=== PATIENT | male | born 1970 | race Caucasian/White ===

== ENCOUNTER 2017-02-15 13:50 | Inpatient (IN) | payer OTHER ==
[2017-02-15 19:44] VITALS: BMI 32.4
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
[2017-02-15] MEDS ORDERED: MENTHOL/PHENOL 1 EACH UD MM PRN (19:52)
[2017-02-15] MEDS ORDERED: MAGNESIUM CITRATE 300 ML BOTTLE PO PRN (19:52)
[2017-02-15] MEDS ORDERED: ACETAMINOPHEN 325 MG TABLET (FP) PO PRN (19:52)
[2017-02-15] MEDS ORDERED: MAGNESIUM HYDROX 2400MG/30ML ORAL SUSPENSION 30 ML CUP PO PRN (19:52)
[2017-02-15] MEDS ORDERED: MAG HYDROX/AL HYDROX/SIMETH 30 ML UNIT-DOSE CUP PO PRN (19:52)
[2017-02-15] MEDS ORDERED: NICOTINE POLACRILEX 4 MG GUM BUC PRN (19:52)
[2017-02-15] MEDS ORDERED: LOPERAMIDE HCL 2 MG CAPSULE PO PRN (19:52)
[2017-02-15] MEDS ORDERED: P-EPHED 60MG/TRIPROLIDI 2.5MG TABLET PO PRN (19:52)
[2017-02-15] MEDS ORDERED: guaiFENesin/D-METHORPHAN HB 10 ML UNIT-DOSE CUPS PO PRN (19:52)
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
[2017-02-16] MEDS ORDERED: INSULIN (NOVOLOG) ASPART 100 UNITS/ML 10ML VIAL ONE ×2 (07:26→12:01)
[2017-02-16] MEDS: INSULIN SLIDING SCALE (NOVOLOG) 1 VIAL SQ SCH ×5 (07:31→22:10)
[2017-02-16 10:07] LABS: MCH 28.1 pg (25.7-33.7); MCHC 33.1 g/dl (32.0-35.9); MEAN CELL VOLUME 84.9 fl (80-96); MEAN PLT VOLUME 9.4 fl (7.5-11.1); PLATELET COUNT 245 K/MM3 (134-434); WHITE BLOOD COUNT 10.9 K/mm3 (4.0-10.0)
[2017-02-16 10:42] LABS: ALBUMIN 3.6 g/dl (3.4-5.0); ALK PHOS 87 U/L (45-117); ANION GAP 8 (8-16); BILIRUBIN,TOTAL 0.6 mg/dL (0.2-1.0); CO2 28 mmol/L (21-32); CREATININE 0.8 mg/dL (0.7-1.3); GLUCOSE,RANDOM 245 mg/dL (74-106); SGPT/ALT 22 U/L (12-78); TOT PROT 7.2 g/dl (6.4-8.2)
[2017-02-16 10:45] LABS: SGOT/AST 3 U/L (15-37)
[2017-02-16] MEDS: DIVALPROEX SODIUM 500 MG TABLET E.C. PO SCH ×2 (11:57→22:09)
[2017-02-16] MEDS: RANITIDINE HCL 150 MG TABLET (FP) PO SCH ×3 (11:57→22:09)
[2017-02-16] MEDS: RAMIPRIL 10 MG PO SCH (11:57)
[2017-02-16] MEDS: PRENATAL VITAMINS W/ FOLIC ACID TABLET (FP) PO SCH (11:57)
[2017-02-16] MEDS: HALOPERIDOL 5 MG TABLET (FP) PO SCH (11:57)
[2017-02-16] MEDS: NICOTINE 21 MG/24 HOURS TOPICAL PATCH TD SCH (11:58)
[2017-02-16] MEDS ORDERED: SODIUM CHLORIDE NASAL SPRAY 44 ML BOTTLE NS PRN (12:19)
[2017-02-16 12:42] LABS: SICKLE CELL SCREEN NEGATIVE (NEGATIVE)
--- NOTE | 2017-02-16 13:56 | EKG ---
Test Reason : Blood Pressure : / mmHG Vent. Rate : 070 BPM Atrial Rate : 070 BPM P-R Int : 150 ms QRS Dur : 082 ms QT Int : 372 ms P-R-T Axes : 062 074 054 degrees QTc Int : 401 ms NORMAL SINUS RHYTHM NORMAL ECG NO PREVIOUS ECGS AVAILABLE Confirmed by LEVI HIGUERA MD ([id number]) on 02/16/2017 1:55:59 PM Referred By: Confirmed By:LEVI HIGUERA MD
[2017-02-16] MEDS: PATIENT'S OWN MEDICATION (NON-FORMULARY) (Metformin Hcl [Glucophage] 1,000 MG) PO SCH ×2 (16:42→17:15)
[2017-02-16] MEDS: INSULIN DETEMIR 100 UNITS/ML MDV SQ SCH ×2 (20:15→22:10)
[2017-02-16] MEDS: ATORVASTATIN CA 40 MG TABLET (FP) PO SCH ×2 (20:15→22:09)
[2017-02-16] MEDS: THIAMINE HCL 100 MG TABLET (FP) PO SCH ×2 (20:16→22:09)
[2017-02-16] MEDS: traZODone HCL 100 MG TABLET (FP) PO SCH (22:09)
[2017-02-17] MEDS ORDERED: ALBUTEROL SO4 18 GM HFA INHALER IH PRN (00:59)
[2017-02-17] MEDS ORDERED: ALBUTEROL SO4 18 GM HFA INHALER IH ONE (01:04)
[2017-02-17] MEDS ORDERED: INSULIN (NOVOLOG) ASPART 100 UNITS/ML 10ML VIAL ONE ×2 (07:12→11:54)
[2017-02-17] MEDS: PATIENT'S OWN MEDICATION (NON-FORMULARY) (Metformin Hcl [Glucophage] 1,000 MG) PO SCH ×2 (07:16→17:07)
[2017-02-17] MEDS: INSULIN SLIDING SCALE (NOVOLOG) 1 VIAL SQ SCH ×4 (07:16→22:34)
[2017-02-17] MEDS: PRENATAL VITAMINS W/ FOLIC ACID TABLET (FP) PO SCH (10:13)
[2017-02-17] MEDS: DIVALPROEX SODIUM 500 MG TABLET E.C. PO SCH ×2 (10:13→22:33)
[2017-02-17] MEDS: RANITIDINE HCL 150 MG TABLET (FP) PO SCH ×2 (10:13→22:35)
[2017-02-17] MEDS: NICOTINE 21 MG/24 HOURS TOPICAL PATCH TD SCH (10:13)
[2017-02-17] MEDS: HALOPERIDOL 5 MG TABLET (FP) PO SCH (10:13)
[2017-02-17] MEDS: RAMIPRIL 10 MG PO SCH (10:14)
[2017-02-17 13:24] LABS: URINE APPEARANCE CLEAR; URINE BILIRUBIN NEGATIVE (NEGATIVE); URINE BLOOD NEGATIVE (NEGATIVE); URINE COLOR LTYELLOW; URINE GLUCOSE (UA) 3+ (NEGATIVE); URINE KETONE TRACE (NEGATIVE); URINE LEUK ESTERASE NEGATIVE (NEGATIVE); URINE NITRITE NEGATIVE (NEGATIVE); URINE PROTEIN NEGATIVE (NEGATIVE); URINE UROBILINOGEN NEGATIVE mg/dL (0.2-1.0)
[2017-02-17 15:11] LABS: URINE LEUK ESTERASE Negative (NEGATIVE)
[2017-02-17] MEDS: INSULIN DETEMIR 100 UNITS/ML MDV SQ SCH (22:34)
[2017-02-17] MEDS: traZODone HCL 100 MG TABLET (FP) PO SCH (22:34)
[2017-02-17] MEDS: ATORVASTATIN CA 40 MG TABLET (FP) PO SCH (22:34)
[2017-02-17] MEDS: THIAMINE HCL 100 MG TABLET (FP) PO SCH (22:35)
[2017-02-18] MEDS ORDERED: diphenhydrAMINE HCL 25 MG CAPSULE (FP) PO ONE (00:23)
[2017-02-18 06:31] VITALS: BP 124/71; PULSE 65; TEMP 98.4
[2017-02-18] MEDS: PATIENT'S OWN MEDICATION (NON-FORMULARY) (Metformin Hcl [Glucophage] 1,000 MG) PO SCH (07:08)
[2017-02-18] MEDS: INSULIN SLIDING SCALE (NOVOLOG) 1 VIAL SQ SCH ×2 (07:09→11:55)
[2017-02-18] MEDS: RANITIDINE HCL 150 MG TABLET (FP) PO SCH (10:34)
[2017-02-18] MEDS: PRENATAL VITAMINS W/ FOLIC ACID TABLET (FP) PO SCH (10:34)
[2017-02-18] MEDS: HALOPERIDOL 5 MG TABLET (FP) PO SCH (10:34)
[2017-02-18] MEDS: RAMIPRIL 10 MG PO SCH (10:35)
[2017-02-18] MEDS: DIVALPROEX SODIUM 500 MG TABLET E.C. PO SCH (10:35)
[2017-02-18] MEDS: NICOTINE 21 MG/24 HOURS TOPICAL PATCH TD SCH (10:35)
[2017-02-18] MEDS ORDERED: INSULIN (NOVOLOG) ASPART 100 UNITS/ML 10ML VIAL ONE (11:53)
== END 2017-02-18 16:15 | disposition left against medical advice (07) | DRG 770 ==
LOC: YASAS 13:50 → Y3W 21:03
PROVIDERS: ADMIT Psychiatry & Neurology Psychiatry; ATTEND Psychiatry & Neurology Psychiatry
PROC: HZ42ZZZ Group Counseling for Substance Abuse Treatment, Cognitive-Behavioral (ICD-10-PCS; principal; 2017-02-15)
DX: F10.24 Alcohol dependence with alcohol-induced mood disorder (principal); F10.282 Alcohol dependence with alcohol-induced sleep disorder; F17.213 Nicotine dependence, cigarettes, with withdrawal; F25.9 Schizoaffective disorder, unspecified; F31.81 Bipolar II disorder; F43.10 Post-traumatic stress disorder, unspecified; E78.5 Hyperlipidemia, unspecified; K21.9 Gastro-esophageal reflux disease without esophagitis; I10 Essential (primary) hypertension; J45.22 Mild intermittent asthma with status asthmaticus; H54.40 Blindness, one eye, unspecified eye; H91.92 Unspecified hearing loss, left ear; E11.9 Type 2 diabetes mellitus without complications; E66.9 Obesity, unspecified; Z68.32 Body mass index [BMI] 32.0-32.9, adult; Z79.4 Long term (current) use of insulin; Z91.013 Allergy to seafood; Z91.5 Personal history of self-harm
CPT/HCPCS: 36415; 80053; 80164; 81003; 85027; 85660; 86593; 93005; 93010